=== PATIENT | male | born 1955 | race Caucasian/White ===

== ENCOUNTER → 2018-10-14 | Outpatient (CLI) | payer SELFPAY ==
[~2018-10-14] MED LIST: IOHEXOL 180 MG/ML 10 ML VIAL. ONE; [UNRECOGNIZED DRUG - REMARK]; blood pressure med; methylPREDNISolone ACETATE 40 MG/ML VIAL. ONE; methylPREDNISolone ACETATE 80 MG/ML VIAL. ONE
--- NOTE | 2018-10-15 02:26 | PAIN ---
DATE OF SERVICE: 10/14/2018 INITIAL CONSULTATION FOR PAIN CLINIC CHIEF COMPLAINT: Low back and left lower extremity pain. HISTORY OF PRESENT ILLNESS: This is a 63-year-old male with history about 2 months increasing pain in the low back going on for many years; however, not a result of any specific injury or action he is aware of, but has been having pain in the left leg as well as the low back with walking and standing. 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 For several months now he has been filling in for low staff. The patient reports it is getting worse with activity, standing, walking, sitting down is better, lying down is better, does not awaken him from sleep at night, does not affect his bowel or bladder control, does not affect his ability to walk, but the pain is worse with walking and standing and lifting heavy items. The patient has had some therapy in the past, but nothing recently, doing some stretching and strengthening exercises on his own and reports the pain is getting worse with activity at work. The patient reports the pain is constant now, tingling with radiating pain in the left leg, posterior gluteus, lateral thigh, lateral anterior thigh, medial thigh to the knee. The patient reports a disability 0-10, 10 being the worst as 0 with family home responsibilities, 1 with recreation, 8 with social activity, 1 with occupation and 5 with sexual behavior, 1 with self-care and 0 with life support activities. The patient did have MRI scan of the lumbar spine showing spinal stenosis at L3-L4, lesser extent L4-L5 without compressing the traversing nerve roots, spinal stenosis at T11-T12 with mild spinal cord deformity due to disk protrusion right L1-L2, L2-L3 and bilateral L3-L4 and right L4-L5 and L5-S1 neural foraminal narrowing with spinal stenosis at L4-L5 and L5-S1 as well, right greater than left neural foraminal narrowing at L4-L5 may affect the right L4 nerve root and right greater than left neural foraminal narrowing L5-S1 and they affect the right L5 nerve root. The patient reports no loss of motor function. No fatigability of the lower extremities, but significant pain in the low back and left leg as described with walking, standing, lifting. PAST MEDICAL HISTORY: Significant for hypertension, difficulty urinating, arthritis, no previous surgeries. CURRENT MEDICATIONS: Advil p.r.n., which does decrease the pain to a mild extent about 30-40%. ALLERGIES: The patient has no known drug allergies. FAMILY HISTORY: Significant for no major medical problems or conditions he is aware of. SOCIAL HISTORY: The patient drinks about 2 beers a week, does not smoke, does not use any illegal, illicit or recreational drugs. He is , lives with his spouse, lives locally in [place], [place] and again works for a local [employer] in [employer] lifting very heavy objects repetitively. REVIEW OF SYSTEMS: The patient's review of systems is positive for those items mentioned in history of present illness. All systems reviewed and otherwise negative. It is complete, full and well documented on the patient's chart. PHYSICAL EXAMINATION: VITAL SIGNS: The patient's blood pressure 161/87, pulse 59, respirations 18, temperature 98.1 degrees Fahrenheit, height is 6 feet, weight is 238 pounds. GENERAL: The patient is awake, alert, oriented, appropriate, very pleasant demeanor. HEENT: Head shows normocephalic, atraumatic. Extraocular movements are intact and symmetrical. Oral cavity mucous membranes moist and pink. Dentition is intact. NECK: Shows anterior throat supple without palpable lymphadenopathy noted. Swallow reflex symmetrical. CHEST: Shows normal on inspection. Breath sounds clear to auscultation bilaterally. HEART: Shows S1, S2 clear. No murmurs auscultated. ABDOMEN: Soft, nontender, nondistended. No palpable organomegaly is noted. No rebound or guarding demonstrated. BACK: Shows spine grossly in the midline. Normal appearing thoracic kyphosis and some minor flattening of lumbar lordotic curvature. Lumbar paraspinous muscle shows symmetrical on inspection, on palpation shows some moderate tenderness diffusely, but without significant abnormalities or asymmetry with palpation shows some [id number] tenderness throughout the upper, middle and lower distribution of paraspinous muscles, which are firm, but without specific trigger points, no tenderness over the spinous processes, sacrum or sacroiliac regions. The patient has good rotational motion of lumbar spine, both laterally greater than 10 degrees right and left, extension 10 degrees, forward flexion 45 degrees without significant increase in pain. EXTREMITIES: The patient's lower extremities show deep tendon reflexes, 2+ in the patellar, 1+ tendo-calcaneus tendons. Motor exam is strong with 5/5 dorsiflexion, extension, quadriceps and hamstring flexion equal. Peripheral pulses are 1+ posterior tibial; no peripheral edema is noted bilaterally. Straight leg raise noted to be negative for reproduction of radicular symptoms bilaterally. Gaenslen's and Hay's maneuvers are negative bilaterally as well. The patient is able to stand, stand on his toes without difficulty or loss of balance, walks with a normal-appearing gait, does not appear to favor the right or left lower extremity significantly for short distance in the office, not using any assistive devices to ambulate. SKIN: Shows warm and dry, good turgor. No edema. No sores, rashes or bruising. IMPRESSION: 1. This is a 63-year-old male with approximate 2-month history of increasing pain, low back, left lower extremity in a radicular fashion. 2. MRI scan of lumbar spine as noted. 3. History of arthritis. 4. Hypertension. PLAN: Options were discussed with the patient including conservative medical management, physical therapy, interventional techniques. He would like to pursue interventional techniques. We discussed a lumbar epidural steroid injection using description as well as anatomical models to describe the procedure. Risks were then discussed including, but not limited to bleeding, infection, possibility of epidural hematoma and subsequent neurological compromise, dural puncture, headaches, spinal cord and/or nerve damage, side effects of steroid medication and poor results regarding pain control. The patient understands and wished to proceed. The patient will return to the clinic in approximately 2 weeks for followup. He was counseled on return appointment, activity level and side effects to be aware of. DIAGNOSES: Lumbar radiculopathy with lumbar degenerative disk disease, lumbar spinal stenosis. PROCEDURES PERFORMED: Lumbar epidural steroid injection, translaminar approach at L4-L5 level using C-arm fluoroscopic guidance under sterile prep and drape using local anesthetic. MEDICATIONS INJECTED: A total of 120 mg Depo-Medrol plus 10 mL of preservative-free normal saline and 2 mL of contrast. CONDITION AT DISCHARGE: Stable. The patient tolerated the procedure well, had no complications. DEEPA AVILEZ MD DR: DELMAR/dori JOB#: [id number] / [id number] RIT Brink MD
== END ==
LOC: PNCL 08:26
PROVIDERS: ATTEND Anesthesiology
DX: M51.16 Intervertebral disc disorders with radiculopathy, lumbar region (principal); M48.061 Spinal stenosis, lumbar region without neurogenic claudication; M54.5 Low back pain; I10 Essential (primary) hypertension; M19.90 Unspecified osteoarthritis, unspecified site; Z72.89 Other problems related to lifestyle; Z79.899 Other long term (current) drug therapy
CPT/HCPCS: 62323; J1030; J1040; Q9965